=== PATIENT | male | born 1940 | race Caucasian/White ===

== ENCOUNTER 2017-05-24 10:37 | Day surgery (SDC) | payer BC ==
[~2017-05-24] VITALS: Ht 188 cm; Wt 121.1 kg
--- NOTE | ~2017-05-24 | EGD ---
EGD REPORT [facility] [address] [place] [address] NAME: PARTH VARGAS : [birth year] STATUS : REG [facility]#: [id number] AGE: 77 ADM/REG DATE : 05/24/17 MR#: [id number] REPORT SERV DATE: 05/24/17 DICTATED BY: YUAN UNDERWOOD DATE: 05/24/17 REPORT STATUS : Draft TRANSCRIBED BY: [employer] DATE: 05/24/17 [facility] Center Patient Name: Parth Vargas Date of : 1940 Attending MD: YUAN UNDERWOOD MD Procedure Date No Time: 05/24/2017 Procedure: Colonoscopy Indications: High risk colon cancer surveillance: Personal history of colonic polyps, FH of Colon Cancer - 1st degree relative Referring MD: Samaria BATISTA Medicines: as per anesthesia Complications: No immediate complications. Procedure: Pre-Anesthesia Assessment: - ASA Grade Assessment: II - A patient with mild systemic disease. After I obtained informed consent, the scope was passed under direct vision. Throughout the procedure, the patient's blood pressure, pulse, and oxygen saturations were monitored continuously. The PCF [id number] was introduced through the anus and advanced to the cecum, identified by appendiceal orifice and ileocecal valve. The colonoscopy was somewhat difficult due to significant looping and a tortuous colon. The patient tolerated the procedure. The quality of the bowel preparation was fair. Findings: The perianal and digital rectal examinations were normal. Two sessile polyps were found in the cecum. The polyps were 3 to 8 mm in size. These polyps were removed with a cold snare. Resection and retrieval were complete. Impression: - Two 3 to 8 mm polyps in the cecum. Resected and retrieved. Recommendation: - Await pathology results. Procedure Code(s): --- Professional --- 90020, Colonoscopy, flexible, proximal to splenic flexure; with removal of tumor(s), polyp(s), or other lesion(s) by snare technique Diagnosis Code(s): --- Professional --- D12.0, Benign neoplasm of cecum Z86.010, Personal history of colonic polyps EGD REPORT [facility] [address] [place]. [address] NAME: PARTH VARGAS : [birth year] STATUS : [place] [facility] PAT#: [id number] AGE: 77 ADM/REG DATE : 05/24/17 MR#: [id number] REPORT SERV DATE: 05/24/17 DICTATED BY: YUAN UNDERWOOD. DATE: 05/24/17 REPORT STATUS : Draft TRANSCRIBED BY: [employer] DATE: 05/24/17 Z80.0, Family history of malignant neoplasm of digestive organs CPT copyright 2013 [employer]. All rights reserved. The codes documented in this report are preliminary and upon fish bailer review may be revised to meet current compliance requirements. YUAN UNDERWOOD MD 05/24/2017 1:34 PM This report has been signed electronically. Number of Addenda: 0 Note Initiated On: 05/24/2017 11:57 AM Scope Withdrawal Time 0 hours 21 minutes 10 seconds [id number] [place] [id number]
[~2017-05-24 10:37] MED LIST: ACET500CAP PO; ALLEGRA180 PO; ASCORBIC ACID PO; ATRONASAL3 NAS; CENTRUM TAB1 TAB PO; COZ50 PO; FLONASE NAS; FOLIC PO; HYDROCHLOROT12.5 MG PO; MAXZIDE PO; OMEGA XL PO; PREVISION PO; PROAIR HFA INH; QVAR80 MCG INH; VITA FUSION PO; VITAMIN D31000 UNIT PO; ZYRTEC ALLGY10 MG PO
== END 2017-05-24 23:59 | disposition home or self-care (01) ==
LOC: DMU 10:37
PROVIDERS: Internal Medicine Gastroenterology
PROC: 0DBH8ZX Excision of Cecum, Via Natural or Artificial Opening Endoscopic, Diagnostic (ICD-10-PCS; principal; 2017-05-24 11:30)
DX: Z12.11 Encounter for screening for malignant neoplasm of colon (principal); D12.0 Benign neoplasm of cecum; F41.9 Anxiety disorder, unspecified; F32.9 Major depressive disorder, single episode, unspecified; I10 Essential (primary) hypertension; J44.9 Chronic obstructive pulmonary disease, unspecified; E66.9 Obesity, unspecified; Z68.34 Body mass index [BMI] 34.0-34.9, adult; Z79.52 Long term (current) use of systemic steroids; Z79.899 Other long term (current) drug therapy; Z86.010 Personal history of colon polyps; Z80.0 Family history of malignant neoplasm of digestive organs; Z90.49 Acquired absence of other specified parts of digestive tract; Z88.0 Allergy status to penicillin; Z90.89 Acquired absence of other organs; Z98.890 Other specified postprocedural states
CPT/HCPCS: 88305